=== PATIENT | male | born 1985 | race Caucasian/White ===

== ENCOUNTER 2018-08-12 12:50 | Observation (INO) | payer OTHER ==
[~2018-08-12 12:50] MED LIST: CEPHALEXIN500 M1 PO
[2018-08-12 13:41] LABS: BASO % 0.2 % (0.0-2.0); EOS % 0.2 % (0-4.0); GRAN # 10.3 (1.4-6.5); GRAN % 82.3 % (42.2-75.2); HEMOGLOBIN 15.1 g/dl (13.5-18.0); LYMPH # 1.5 (1.2-3.4); LYMPH % 11.8 % (20.0-51.0); MEAN CELL VOLUME 88 fl (80.0-100.0); MEAN CORPUSCULAR HEMOGLOBIN 30 pg (27.0-31.0); MEAN CORPUSCULAR HGB CONC 34 g/dl (33.0-37.0); MEAN PLATELET VOLUME 9.7 fl (7.4-10.4); MONO # 0.7 (0.1-0.6); MONO % 5.2 % (1.7-9.3); PLATELET COUNT 217 K/mm3 (130-400); REDCELL DISTRIBUTION WIDTH-CV 11.9 % (11.5-14.5)
[2018-08-12 13:54] LABS: ALBUMIN 4.8 gm/dL (3.5-5.0); BILIRUBIN,TOTAL 0.7 mg/dL (0.0-1.0); CREATININE, serum 0.94 (0.66-1.25); TOTAL PROTEIN 8.8 gm/dL (6.4-8.2)
[2018-08-12 15:25] LABS: COLLECTION METHOD CLEAN CATCH
[2018-08-12 15:33] LABS: SQUAMOUS EPITHELIAL 0-2 /hpf; URINE APPEARANCE Clear; URINE BACTERIA None Seen /hpf; URINE BILIRUBIN Negative (NEGATIVE); URINE BLOOD Negative (NEGATIVE); URINE COLOR Straw; URINE GLUCOSE Negative (NEGATIVE); URINE KETONE Negative (NEGATIVE); URINE LEUKOCYTE ESTERASE Negative (NEGATIVE); URINE NITRATE Negative (NEGATIVE); URINE PROTEIN(semi-quant) Negative (NEGATIVE); URINE RBC 0-2 /hpf; URINE UROBILINOGEN Negative (NEGATIVE)
[2018-08-12 15:41] LABS: PH 7 (5-8)
[2018-08-12] MEDS ORDERED: NORCO 325 MG-51 TAB PO (16:39)
[2018-08-12 17:23] VITALS: BP 130/82; PULSE 96; TEMP 97.9
[2018-08-12 17:38] VITALS: BP 131/62; PULSE 92
--- NOTE | 2018-08-12 17:38 | NUR ---
Patient post op lap appy. Abdomen soft, non tender, non distended. Bowel sounds active. Lap sites x3 with edges well approximated, no drainage noted. No c/o pain or discomfort. Requests food and drink. No other c/o at this time.
[2018-08-12 17:54] VITALS: BP 130/82; PULSE 97
[2018-08-12 18:23] VITALS: BP 140/66; PULSE 88; TEMP 97.9
--- NOTE | 2018-08-12 18:50 | NUR ---
Patient ready to go home. Has eaten without nausea or vomiting. Reports pain is minimal. Has lap sites x3 to abdomen with bandaids covering.
[2018-08-12 18:53] VITALS: BP 127/69; PULSE 79; TEMP 98.1
--- NOTE | 2018-08-12 19:00 | NUR ---
Discharge instructions reviewed with patient. Belongings with patient. RX for [place] given to patient. Copy of discharge instructions given to patient. IV site dc'd with angiocath intact. Patient up to bathroom to get dressed.
--- NOTE | 2018-08-12 19:10 | NUR ---
Patient has bleeding from umbilicus lap site. Cleansed and reapplied bandaids x2. Patient has voided and is ready for discharge.
[2018-08-12 19:15] VITALS: BP 111/47; PULSE 81
--- NOTE | 2018-08-12 19:15 | NUR ---
Patient escorted to private car via ambulatory status. Has belongings and discharge instructions with him.
== END 2018-08-12 19:15 | disposition home or self-care (01) ==
LOC: COL.ER 12:50 → SURG 15:27
PROVIDERS: Family Medicine; ADMIT Surgery
DX: K35.80 Unspecified acute appendicitis (principal)
CPT/HCPCS: J0690; J1100; J1885; J2300; J2405; J2704; J2765; J3010; J7030; J7120; Q9967